=== PATIENT | female | born 1995 | race Caucasian/White ===

== ENCOUNTER 2017-08-17 22:23 | Emergency (ER) | END 2017-08-18 01:03 | disposition left against medical advice (07) ==

== ENCOUNTER 2017-08-18 09:20 | Emergency (ER) | END 2017-08-18 14:05 | disposition home or self-care (01) ==

== ENCOUNTER 2017-09-08 15:41 | Day surgery (SDC) | END 2017-09-09 00:45 | disposition home or self-care (01) ==

== ENCOUNTER 2017-11-07 18:31 | Emergency (ER) | END 2017-11-07 21:17 | disposition home or self-care (01) ==

== ENCOUNTER 2018-05-15 18:30 | Emergency (ER) | payer SELFPAY ==
[~2018-05-15] VITALS: Ht 172.7 cm; Wt 78.2 kg
[~2018-05-15 18:30] MED LIST: CIPR-193 PO; FOL8 PO; HYDR-4011 PO
[2018-05-15 19:07] VITALS: BP 123/73; PULSE 91; RESP 16; Ht 172.7 cm; Wt 78.2 kg
== END 2018-05-15 22:09 | disposition left against medical advice (07) ==
LOC: FTE 18:30
DX: Z53.21 Procedure and treatment not carried out due to patient leaving prior to being seen by health care provider (principal)

== ENCOUNTER 2018-07-28 21:59 | Emergency (ER) | payer SELFPAY ==
[~2018-07-28] VITALS: Ht 167.6 cm; Wt 83.7 kg
[2018-07-28 22:05] VITALS: BP 115/69; PULSE 95; RESP 24; Ht 167.6 cm; Wt 83.7 kg
== END 2018-07-29 01:00 | disposition left against medical advice (07) ==
LOC: FTE 21:59
DX: Z53.21 Procedure and treatment not carried out due to patient leaving prior to being seen by health care provider (principal)